=== PATIENT | female | born 1995 | race Asian ===

== ENCOUNTER 2023-08-12 21:58 | Emergency (ER) | payer OTHER ==
--- OUTSIDE RECORDS SUMMARY | 2023-08-12 22:04 | XMS REPORT | Continuity of Care Document ---
:1995 Author Organization [facility] t Address [address] [place] [address] Care Team Providers Name Role Phone Asked, No Pcp Primary Care Physician Unavailable [email or web address]_S Attending Clinician Unavailable Zack Rodas Attending Clinician Unavailable Gali MORRIS, [facility] Attending Clinician Lakshmi Pemberton MD Attending Clinician Junior Vega MD Attending Clinician Noreen Gallo Attending Clinician Unavailable Triston Hackett Attending Clinician ABY GRIJALVA Attending Clinician Unavailable Ainsley Priest Attending Clinician [email or web address]_Kadiyala_S Admitting Clinician Unavailable KNOW, DOES_NOT Admitting Clinician Unavailable JUNIOR VEGA Admitting Clinician Unavailable MD LAKSHMI PEMBERTON Admitting Clinician Unavailable Physician, No Primary or Family Admitting Clinician Unavailruth ann BrandtzeAinsley Nneze Admitting Clinician Payers Payer Name Policy Type Policy Number Effective Date Expiration Date S peter Problems Condition Condition Condition Status Onset Resolution Last Treating Co mments Source Name Details Category Date Date Treatment Clinician Date Non-trauma Non-trauma Disease Active M ethodi tic tic 6-29 st rhabdomyol rhabdomyol 00:00: Ho spita ysis ysis 00 l BPP BPP Diagnosis Active 2019-01-03 Mem oria Active 11-12 14:22:00 l 11/12/2018 00:00: Oniel connors [facility] 00 Edwin CONTRACTIO CONTRACTI Diagnosis Active 2018-10-19 Memoria NS ONS Active 10-18 12:51:00 l 10/18/2018 00:00: Oniel connors [facility] 00 [place] F/U GROWTH F/U Diagnosis Active 2019-03-22 Memoria GROWTH 10-12 10:26:00 l Active 00:00: Edwin 10/12/2018 00 [facility] Edwin GC/ANATOMY GC/ANATOM Diagnosis Active 2017-102018-09-07 Memoria /DIABETES/ Y/DIABETES 0-31 12:02:00 l PRIOR /PRIOR 00:00: Edwin 00 Active 08/04/2018 [facility] Edwin Diabetes Diabetes Problem Active [facility] Di[facility] Active [facility] l ans counseling counseling completed completed Type 2 Type 2 Problem Active [facility] diabetes diabetes Physic i mellitus mellitus ans with with complicati complicati on, on, unspecifie unspecifie d whether d whether penitentiary penitentiary insulin insulin use use Weeks of Weeks of Problem 2019-05-31 Memoria gestation gestation 12:00:41 l of of Edwin not not specified specified 05/31/2019 [facility] Supervisio Supervisi Problem 2019-04-26 Memoria n of on of 11:43:09 l Herm juan j with other with other poor poor reproducti reproducti ve or ve or obstetric obstetric history, history, second second trimester trimester 04/26/2019 Aby Encounter Encounter Problem 2019-04-26 Memoria for for 11:43:09 l Herm juan j screening screening for for growth growth retardatio retardatio n n 04/26/2019 [facility] Other Other Problem 2019 Memor ia specified specified 11:27:05 l Herm juan j related related conditions conditions , second , second trimester trimester 2019 [facility] Dehydratio Problem 2019 M emoria n Dehydratio 11:27:05 l n [place] 2019 [facility] Supervisio Supervisi Problem 2019 Memoria n of on of 11:27:05 l Herm juan j with with history of history of pre-term pre-term labor, labor, second second trimester trimester 2019 [facility] 26 weeks 26 weeks Problem 2019 Memoria gestation gestation 11:27:05 l of of [place] 2019 [facility] Patient Patient Problem Resolve 2019-05-31 2019-05-31 Memoria currently currently d 10-18 12:00:41 12:00:41 l 00:00: Oniel connors (finding) (finding) 00 Resolved 10/18/2018 Problem 05/31/2019 [facility] History of Past Illness Condition Condition Condition Status Onset Resolution Last Treating Co mments Source Name Details Category Date Date Treatment Clinician Date Unspecifie Unspecifi Problem 2019-05-31 2019-05-31 Memoria d diabetes ed 2-12 12:00:41 12:00:41 l mellitus diabetes 04:49: Oniel connors in mellitus 48 , in second , trimester second trimester 11/16/2018 05/31/2019 [facility] False False Problem 2018-2019-05-07 2019 M emoria labor labor 10-23 11:27:05 11:27:05 l before 37 before 37 04:42: Herm juan j completed completed 50 weeks of weeks of gestation, gestation, second second trimester trimester 10/23/2018 9 [facility] Encounter Encounter Problem 2018-2019-04-26 2019-04-26 Memoria for other for other 10-11 11:43:09 11:43:09 l specified specified 03:45: Herm juan j 35 screening screening 10/11/2018 04/26/2019 [facility] Allergies, Adverse Reactions, Alerts Allergy Allergy Status Severity Reaction(s) Onset Inactive Treating Comm ents Source Name Type Date Date Clinician No Known DA Active [facility] 06[facility]18 [facility] 00 [facility] No Known DA Active [facility] Allergie 06-18 [facility] 00:[facility] 00 [facility] No Known No Known Active Memori a Medicati Medicati l on on [place] Allergie Allergie s s Social History Social Habit Start Date Stop Date Quantity Comments Source [facility] of Social 2022-04-07 2022-04-07 [facility] function 00:00:00 00:00:00 Sex Ass[birth year] At [birth year] [facility] 00:00:00 00:00:00 Smoking Status Start Date Stop Date Source Social History [facility] Medications Ordered Filled Start Stop Current Ordering Indication Dosage Frequency Signature Comments Components Source Medication Medication Date Date Medication? Clinician (SIG) Name Name ibuprofen No 600mg [id number] Take 600 [facility] (ADVIL) 600 -29 04-[id number] MG tablet 00:00: 00:00 3D mouth 3 Hosp [facility] 00 :00 (three) l times a day as needed for mild pain. ibuprofen No 600mg Q.[id number] Take 600 [facility] (ADVIL) 600 6- 07-[id number] MG tablet 00:00: 00:00 3D mouth 3 Hosp [facility] 00 :00 (three) l times a day as needed for mild pain. Lactated No 1,000 mL, Naeem sweta Ringers IV -14 Rate: l 1,000 mL 15:00: 1,000 Edwin 00 ml/hr, Infuse over: 1 hr, Route: IV, Dosing Weight 71.364 kg, Total Volume: 1,000, Start date: 10/18/18 9:00:[address] REPORTER, Duration: 1 doses or times, Stop date: 10/18/18 9:59:[address] REPORTER, 1.77, m2 metFORMIN Yes 1000mg Q.5D Take 1,000 [facility] (GLUCOPHAGE 6-[address] ) 500 mg 00:00: mouth 2 Hospit a tablet 00 (two) l times a day. Per Pt. She run out of this medication on 04/01/22. Pt. Needs to see her PCP for a refill or evaluation . metFORMIN 2016-0 Yes 1000mg Q.5D Take 1,000 [facility] (GLUCOPHAGE 6-[address] ) 500 mg 00:00: mouth 2 Hospit a tablet 00 (two) l times a day. Per Pt. She run out of this medication on 04/01/22. Pt. Needs to see her PCP for a refill or evaluation . metFORMIN 2016-0 Yes 1000mg Q.5D Take 1,000 [facility] (GLUCOPHAGE 6-[address] ) 500 mg 00:00: mouth 2 Hospit a tablet 00 (two) l times a day. Per Pt. She run out of this medication on 04/01/22. Pt. Needs to see her PCP for a refill or evaluation . metFORMIN 2016-0 Yes 1000mg Q.5D Take 1,000 [facility] (GLUCOPHAGE 6-[address] ) 500 mg 00:00: mouth 2 Hospit a tablet 00 (two) l times a day. Per Pt. She run out of this medication on 04/01/22. Pt. Needs to see her PCP for a refill or evaluation . metFORMIN 2015-0 Yes 1000mg Q.5D Take 1,000 [facility] (GLUCOPHAGE 6-[address] ) 500 mg 00:00: mouth 2 Hospit a tablet 00 (two) l times a day. Per Pt. She run out of this medication on 04/01/22. Pt. Needs to see her PCP for a refill or evaluation . Vital Signs Vital Name Observation Time Observation Value Comments Source Systolic blood 2022-04-07 13:15:29 115 mm[Hg] [facility] pressure Diastolic blood 2022-04-07 13:15:29 70 mm[Hg] [facility] pressure Heart rate 2022-04-07 13:15:29 78 /min [facility] Body temperature 2022-04-07 13:15:29 36.67 Lizette [facility] Respiratory rate 2022-04-07 13:15:29 20 /min [facility] Oxygen saturation in 2022-04-07 13:15:29 99 /min [facility] Arterial blood by Pulse oximetry Body height 2022-04-02 04:13:00 152.4 cm [facility] Body weight 2022-04-02 04:13:00 69.854 kg [facility] BMI 2022-04-02 04:13:00 30.08 kg/m2 [facility] Weight 2018-11-15 10:39:00 162 [lb_av] [facility] Respitory Rate 2018-10-18 14:29:00 Zachery monsivais [place] Systolic (mm Hg) 2018-10-18 14:29:00 Naeem mcdonough [place] Diastolic (mm Hg) 2018-10-18 14:29:00 Mem orial [place] Heart Rate 2018-10-18 14:29:00 [facility] Temperature Oral (F) 2018-10-18 14:29:00 98.6 F [facility] BMI Calculated 2018-10-18 14:22:00 Zachery al [place] Weight 2018-10-18 14:22:00 [facility] Height 2018-10-18 14:22:00 152.4 cm [facility] Procedures Procedure Date / Time Performing Clinician Source Performed POC GLUCOSE 2022-04-07 14:25:00 Junior Vega [facility] CBC WITH PLATELET AND 2022-04-07 10:05:00 Junior Vega [facility] DIFFERENTIAL COMPREHENSIVE METABOLIC 2022-04-07 10:05:00 Kristen [facility] PANEL CREATINE KINASE, TOTAL 2022-04-07 10:05:[address] [facility] ([facility]) ESTIMATED GFR 2022-04-07 10:05:00 Junior Vega Ho spital POC GLUCOSE 2022-04-07 01:59:00 Junior Vega Ho spital POC GLUCOSE 2022-04-06 23:14:00 Junior Vega Ho spital POC GLUCOSE 2022-04-06 17:57:00 Junior Vega Ho spital POC GLUCOSE 2022-04-06 15:06:00 Junior Vega Ho spital POC GLUCOSE 2022-04-06 14:03:00 Junior Vega Ho spital CBC WITH PLATELET AND 2022-04-06 10:41:00 Junior Vega [facility] DIFFERENTIAL COMPREHENSIVE METABOLIC 2022-04-06 10:41:00 [facility] PANEL CREATINE KINASE, TOTAL 2022-04-06 10:41:[address] [facility] ([facility]) ESTIMATED GFR 2022-04-06 10:41:00 Junior Vega Ho spital POC GLUCOSE 2022-04-06 02:02:00 Junior Vega Ho spital POC GLUCOSE 2022-04-05 21:57:00 Junior Vega Ho spital POC GLUCOSE 2022-04-05 17:10:00 Junior Vega Ho spital POC GLUCOSE 2022-04-05 13:02:00 Junior Vega Ho spital CBC WITH PLATELET AND 2022-04-05 10:07:00 Junior Vega [facility] DIFFERENTIAL COMPREHENSIVE METABOLIC 2022-04-05 10:07:00 Junior Vega [facility] PANEL CREATINE KINASE, TOTAL 2022-04-05 10:07:[address] [facility] ([facility]) ESTIMATED GFR 2022-04-05 10:07:00 Junior Vega Ho spital MANUAL DIFFERENTIAL 2022-04-05 10:07:00 [facility] POC GLUCOSE 2022-04-05 02:02:00 Junior Vega Ho spital POC GLUCOSE 2022-04-04 22:17:00 Junior Vega Ho spital POC GLUCOSE 2022-04-04 19:15:00 Junior Vega Ho spital POC GLUCOSE 2022-04-04 17:50:00 Junior Vega Ho spital POC GLUCOSE 2022-04-04 16:32:00 Junior Vega Ho spital POC GLUCOSE 2022-04-04 13:59:00 Junior Vega Ho spital CBC WITH PLATELET AND 2022-04-04 09:49:00 Junior Vega [facility] DIFFERENTIAL COMPREHENSIVE METABOLIC 2022-04-04 09:49:00 Junior eVga [facility] PANEL CREATINE KINASE, TOTAL 2022-04-04 09:49:[address] [facility] ([facility]) ESTIMATED GFR 2022-04-04 09:49:00 Junior Vega Ho spital MANUAL DIFFERENTIAL 2022-04-04 09:49:00 Junior Vega [facility] POC GLUCOSE 2022-04-04 01:50:00 Junior Vega Ho spital POC GLUCOSE 2022-04-03 22:22:00 Junior Vega Ho spital POC GLUCOSE 2022-04-03 17:38:00 Lakshmi Pemberton Ho spital US HEPATIC 2022-04-03 15:17:42 Junior Vega Ho spital POC GLUCOSE 2022-04-03 13:18:00 Lakshmi Pemberton Ho spital ZZCOVID-19 ANTI-SPIKE IGG 2022-04-03 09:28:00 Olaf [facility] ANTIBODY TITER Cesar CREATINE KINASE, TOTAL 2022-04-03 09:28:00 [facility] ([facility]) ACUTE VIRAL HEPATITIS 2022-04-03 09:28:00 [facility] PANEL (HAV, HBV, HCV) CBC WITH PLATELET AND 2022-04-03 09:28:00 [facility] DIFFERENTIAL COMPREHENSIVE METABOLIC 2022-04-03 09:28:00 [facility] PANEL HEMOGLOBIN A1C 2022-04-03 09:28:00 [facility] ZZCOVID-19 SEROLOGY 2022-04-03 09:28[facility] Cesar ESTIMATED GFR 2022-04-03 09:28:00 [facility] MANUAL DIFFERENTIAL 2022-04-03 09:28:00 [facility] POC GLUCOSE 2022-04-03 01:56:00 Lakshmi Pemberton spital POC GLUCOSE 2022-04-02 22:29:00 Lakshmi Pemberton spital URINE DRUGS OF ABUSE 2022-04-02 20:07:00 [facility] SCREEN CREATINE KINASE, TOTAL 2022-04-02 20:07:00 Candida Thomas [facility] ([facility]) COMPREHENSIVE METABOLIC 2022-04-02 20:07[facility]00 [facility] PANEL CBC WITH PLATELET AND 2022-04-02 20:07:00 Thomas, [facility] DIFFERENTIAL ESTIMATED GFR 2022-04-02 20:07:00 [facility] POC GLUCOSE 2022-04-02 15:26:00 Lakshmi Pemberton spital POC GLUCOSE 2022-04-02 14:36:00 [facility] US DUPLEX VENOUS LOWER 2022-04-02 09:28:00 [facility] EXTREMITY RIGHT URINE CULTURE 2022-04-02 08:25:00 [facility] COVID-19 QUALITATIVE 2022-04-02 08:13:00 [facility] RT-PCR URINALYSIS SCREEN AND 2022-04-02 08:13:00 [facility] MICROSCOPY, WITH REFLEX TO CULTURE HCG QUALITATIVE, URINE 2022-04-02 08:13:00 [facility] SCREEN CBC WITH PLATELET AND 2022-04-02 05:53:00 [facility] DIFFERENTIAL PROTHROMBIN TIME WITH INR 2022-04-02 05:53:00 [facility] PARTIAL THROMBOPLASTIN 2022-04-02 05:53:00 [facility] TIME (PTT) COMPREHENSIVE METABOLIC 2022-04-02 05:53:00 [facility] PANEL CREATINE KINASE, TOTAL 2022-04-02 05:53:00 [facility] (K) SEDIMENTATION RATE 2022-04-02 05:53:00 [facility] C-REACTIVE PROTEIN 2022-04-02 05:53:00 [facility] ESTIMATED GFR 2022-04-02 05:53:00 [facility] SMEAR REVIEW 2022-04-02 05:53:00 [facility] XR KNEE 3 VW RIGHT 2022-04-02 04:36:43 [facility] Plan of Care Planned Activity Planned Date Details Comments Source Future Scheduled 2023-08-02 Screening for [facility] Test 09:25:17 malignant neoplasm of cervix (procedure) [code = 345526019] Future Scheduled 2023-08-02 INFLUENZA VACCINE [facility] Test 09:25:17 (#1) [code = INFLUENZA VACCINE (#1)] Future Scheduled 2023-08-02 COVID-19 [facility]ACCINE [facility] Test 09:25:17 (#1) [code = COVID-19 VACCINE (#1)] Future Scheduled 2023-07-19 COVID-19 [facility]ACCINE [facility] Test 12:54:41 (#1) [code = COVID-19 VACCINE (#1)] Future Scheduled 2023-07-19 Screening for [facility] Test 12:54:41 malignant neoplasm of cervix (procedure) [code = 793500159] Future Scheduled 2023-07-19 IN[facility] VACCINE [facility] Test 12:54:41 (#1) [code = INFLUENZA VACCINE (#1)] Future Scheduled 2023-07-19 RSV VACCINES > 60 [facility] Test 12:54:41 YR (1 - 1-dose 60+ series) [code = RSV VACCINES > 60 YR (1 - 1-dose 60+ series)] Future Scheduled 2023-06-12 COVID-19 VACCINE [facility] Test 11:58:32 (#1) [code = COVID-19 VACCINE (#1)] Future Scheduled 2023-06-12 Screening for [facility] Test 11:58:32 malignant neoplasm of cervix (procedure) [code = 128528138] Future Scheduled 2023-06-12 INFLUENZA VACCINE [facility] Test 11:58:32 (#1) [code = INFLUENZA VACCINE (#1)] Future Scheduled 2022-09-22 COVID-19 VACCINE [facility] Test 19:51:45 (#1) [code = COVID-19 VACCINE (#1)] Future Scheduled 2022-09-22 Screening for [facility] Test 19:51:45 malignant neoplasm of cervix (procedure) [code = 627216774] Future Scheduled 2022-09-22 INFL[facility]ENZA VACCINE [facility] Test 19:51:45 [code = INFLUENZA VACCINE] Future Scheduled 2022-09-22 COVID-[address] [facility] Test 19:51:45 (#1) [code = COVID-19 VACCINE (#1)] Future Scheduled 2022-09-22 Screening [facility] Test 19:51:45 malignant neoplasm of cervix (procedure) [code = 880135467] Future Scheduled 2022-09-22 INFLUENZA VACCINE [facility] Test 19:51:45 [code = INFLUENZA VACCINE] Encounters Start End Encounter Admission Attending Care Care Encounter Source Date/Time Date/Time Type Type Clinicians Facility Department ID 2023-08-04 2023-08-04 Outpatient GC_GCBZW_Ka PRIV PRIV [id number] [facility] 00:00:00 00:00:00 tony_S [id number] [facility] 2023-07-29 2023-07-29 Outpatient [facility] [id number] [facility] 08:28:00 08:28:00 Zack [facility] 2022-04-01 2022-04-07 [facility] [id number] [facility] 23:15:00 11:05:00 Encounter Lakshmi Pemberton [id number] Junior Vega [id number] Hospita .[id number] l .8 2022-03-30 2022-03-31 Emergency EM Aharaissaeze, [facility] [id number] [facility] 17:15:00 00:54:00 Noreen [facility] 2021-02-17 2021-02-17 Inpatient [facility] [id number] [facility] 09:41:31 09:41:31 25 [facility] 2020-12-31 2020-12-31 Outpatient [facility] CO[facility] PBXFGAQ XVD [facility] 00:00:00 00:00:00 - 3 2018-12-14 2019-01-04 [facility] [id number] Memoria 14:03:00 04:59:00 merna Pineda 03 l [facility] 2018-12-14 2019-01-03 Outpatient [place] [id number] 09:03:00 23:59:00 Triston Gracia 2018-11-12 2018-12-13 [facility] [id number] Memoria 14:38:00 04:59:00 r [place] 02 l [facility] 2018-11-12 2018-12-12 Outpatient [place] [id number] 08:38:00 23:59:00 Triston Fagan 2018-11-12 2018-11-12 Appointmen EDUCATION, [facility] Women's [id number] [place] 10:00:00 10:00:00 t; [facility] EDUCATION, [place] 2018-10-12 2018-11-11 Recurring [facility] [id number] Memoria 18:16:00 05:59:00 r [place] 01 l [facility] 2018-10-12 2018-11-10 Outpatient [place], PL PL [id number] 12:16:00 23:59:00 Triston Gracia 2018-10-12 2018-11-10 Outpatient [place] [id number] 12:16:00 23:59:00 Triston Gracia 2018-10-18 2018-10-18 Observatio nullFlavo [facility] 3521 [id number] Memoria 14:21:00 16:15:00 n r [place] 00 l [facility] 2018-10-18 2018-10-18 Outpatient Zayda, PL [facility] [id number] 08:21:00 10:15:00 Comfort 00 Nneze 2018-09-07 2018-10-07 Recurring [facility] [id number] Memoria 15:41:00 05:59:00 r [place] 00 l [facility] 2018-09-07 2018-10-06 Outpatient [place], PL PL [id number] 09:41:00 23:59:00 Triston Gracia 2018-10-06 2018-10-06 [facility] EDUCATION, [facility] UTP [id number] [place] 12:00:00 12:00:00 t; [facility] EDUCATION, [facility] Results Test Description Test Time Test Comments Results Result Comments Source POC glucose 2022-04-07 14:27:00 Test Item Value Reference Range Interpretation Comme nts POC glucose (test code = 18991-8) 187 mg/dL 65-99 H Senior Product Development Scientist Name: Stephon Guzmán ID: [id number] Lab Interpretation (test code = Abnormal 18243-3) [facility] [id number] 14:27:00 Test Item Value Reference Range Interpretation Comments POC glucose (test code = 187 mg/dL 65-99 H Ope rator Name: [id number]) Stephon Guzmán ID: [id number] Lab Interpretation (test Abnormal code = 93263-8) [facility] [id number] 08:46:00 Test Item Value Reference Range Interpretation Comments Urine culture (test SEE COMMENT Bacteriu sweta screen code = 0780513) negative. [facility] [id number] 08:46:00 Test Item Value Reference Range Interpretation Comments Urine culture (test SEE COMMENT Bacteriu sweta screen code = 7284635) negative[facility] [Presence] in Respiratory specimen by STAN with probe [id number] 06:19:33 Test Item Value Reference Range Interpretation Comments SARS-CoV-2 (COVID-19) RNA Not detected [Presence] in Respiratory specimen by STAN with probe detection (test code = 12092-7) Whether patient is employed in a Unknown healthcare setting (test code = 85722-4) Whether the patient has symptoms Unknown related to condition of interest (test code = 63045-3) Whether the patient was Unknown hospitalized for condition of interest (test code = 87240-2) Whether the patient was admitted Unknown to intensive care unit (ICU) for condition of interest (test code = 78530-2) Whether patient resides in a Unknown congregate care setting (test code = 70890-7) status (test code = Unknown 75620-0) Date and time of symptom onset Unknown (test code = 84967-1) [facility] [id number] 00:27:00 Test Item Value Reference Range Interpretation Comments GLUBED (test code = 251 mg/dL 65-110 H Phsician Notified GLUBED) UR HCG [id number] 10:32:00 Test Item Value Reference Range Interpretation Comments UR HCG QUAL (test code = HCGQLU) POSITIVE COMPREHENSIVE METABOLIC [id number] 10:07:00 Test Item Value Reference Range Interpretation Comments SODIUM (test code = NA) 134 mEq/L 135-145 L POTASSIUM (test code = K) 3.8 mEq/L 3.5-5.0 N CHLORIDE (test code = CL) 99 mEq/L 100-115 L CARBON DIOXIDE (test code = CO2) 24 mEq/L 22-31 N ANION GAP (test code = GAP) 15.20 10-20 N GLUCOSE (test code = GLU) 239 mg/dL 65-110 H BLOOD UREA NITROGEN (test code = 11 mg/dL 7-18 N BUN) GLOMERULAR FILTRATION RATE (test 87 ml/min >60 N code = GFR) CREATININE (test code = CREAT) 0.8 mg/dL 0.5-1.0 N TOTAL PROTEIN (test code = PROT) 7.3 gm/dL 6.3-8.2 N ALBUMIN (test code = ALB) 3.9 gm/dL 3.4-4.8 N CALCIUM (test code = CA) 8.7 mg/dL 8.4-10.2 N BILIRUBIN TOTAL (test code = BILT) 1.4 mg/dL 0.2-1.0 H SGOT/AST (test code = AST) 16 units/L 15-37 N SGPT/ALT (test code = ALT) 25 units/L 12-78 N ALKALINE PHOSPHATASE TOTAL (test 52 units/L 46-116 N code = ALKP) CBC W/AUTO [id number] 09:58:00 Test Item Value Reference Range Interpretation Comments WHITE BLOOD CELL (test code = WBC) 13.8 K/mm3 6.5-12.3 H RED BLOOD CELL (test code = RBC) 4.98 M/mm3 3.51-4.69 H HEMOGLOBIN (test code = HGB) 14.9 g/dL 10.1-13.8 H HEMATOCRIT (test code = HCT) 43.5 % 32.5-41.8 H MEAN CELL VOLUME (test code = MCV) 87.3 fL 84.6-96.6 N MEAN CELL HGB (test code = MCH) 29.9 pg 27.3-33.9 N MEAN CELL HGB CONCETRATION (test 34.3 gm/dL 32.0-34.2 H code = MCHC) RED CELL DISTRIBUTION WIDTH (test 12.1 % 12.2-16.3 L code = RDW) PLATELET COUNT (test code = PLT) 296 K/mm3 134-363 N MEAN PLATELET VOLUME (test code = 10.6 fL 9.2-12.7 N MPV) NEUTROPHIL % (test code = NT%) 60.7 % 57.9-77.3 N LYMPHOCYTE % (test code = LY%) 34.3 % 14.5-29.7 H MONOCYTE % (test code = MO%) 3.7 % 3.6-10.2 N EOSINOPHIL % (test code = EO%) 0.7 % 0.0-3.0 N BASOPHIL % (test code = BA%) 0.1 % 0.1-0.9 N NEUTROPHIL # (test code = NT#) 8.4 K/mm3 LYMPHOCYTE # (test code = LY#) 4.7 K/mm3 MONOCYTE # (test code = MO#) 0.5 K/mm3 EOSINOPHIL # (test code = EO#) 0.09 K/mm3 BASOPHIL # (test code = BA#) 0.0 K/mm3 RBC MORPHOLOGY REQUIRED (test code NORMAL NORMAL = RBCM) PLATELET MORPHOLOGY REQUIRED (test NORMAL NORMAL code = PLTMR) US Lower Ext Venous Duplex [id number] 05:46:32Patient: SENAIT MCFARLANE Date/Time01/01/2019 05:26 CDTReason for ExamExtremity EdemaReportUS Lower Ext Venous Duplex BilateralINDICATION: Lower extremity edemaSTUDY: Compressionvenous Ultrasound and Doppler evaluation of both lower extremities.Site: [id number]: None availableFINDINGS:Right side:-1. Patent and compressible visualized portions of the common femoral, femoral and popliteal veins to the level of the trifurcation.2. Unremarkable visualized portions of the deep veins of the calf.Left side:-1. Patent and compressible visualized portions of the common femoral, femoral and popliteal veins to the level of the trifurcation.2. Unremarkable visualized portions of thedeep veins of the calf.IMPRESSION:No evidence of DVT is visualized. Final Dictated by: MD Gideon, SaniaDictated DT/TM: 01/01/2019 5:46 amSigned by: MD Gideon, SaniaSigned (Electronic Signature): 01/01/2019 5:46 amURINE AND [id number] 15:08:00 Test Item Value Reference Range Interpretation Comments UA Mucus (test code = UA Mucus) Few /[facility]F [facility] [id number] 15:08:00 Test Item Value Reference Range Interpretation Comments UA RBC (test code = UA RBC) no gt <=2 [facility] [id number] 15:08:00 Test Item Value Reference Range Interpretation Comments UA Bacteria (test code = None Seen (10/18/18 UA Bacteria) 9:08 AM) [facility] [id number] 15:08:00 Test Item Value Reference Range Interpretation Comments UA Turbidity (test code = Clear (10/18/18 9:08 UA Turbidity) AM) [facility] [id number] 15:08:00 Test Item Value Reference Range Interpretation Comments UA Spec Grav (test code = UA Spec 1.016 1 Grav) [facility] [id number] 15:08:00 Test Item Value Reference Range Interpretation Comments UA Bili (test code = Negative *NA*(10/18/18 UA Bili) 9:08 AM) [facility] [id number] 15:08:00 Test Item Value Reference Range Interpretation Comments UA Ketones (test code = UA Ketones) 20 mg/dL [facility] [id number] 15:08:00 Test Item Value Reference Range Interpretation Comments UA Color (test code = Yellow *NA*(10/18/18 UA Color) 9:08 AM) [facility] [id number] 15:08:00 Test Item Value Reference Range Interpretation Comments UA WBC (test code = UA WBC) 2 <=5 [facility] [id number] 15:08:00 Test Item Value Reference Range Interpretation Comments UA Sq Epi (test code = UA Sq Epi) Few /LPF [facility] [id number] 15:08:00 Test Item Value Reference Range Interpretation Comments UA pH (test code = UA pH) 6.0 1 5.0-8.0 [facility] [id number] 15:08:00 Test Item Value Reference Range Interpretation Comments UA Nitrite (test code Negative (10/18/18 9:08 = UA Nitrite) AM) [facility] [id number] 15:08:00 Test Item Value Reference Range Interpretation Comments UA Leuk Est (test code Trace *ABN*(10/18/18 = UA Leuk Est) 9:08 AM) [facility] [id number] 15:08:00 Test Item Value Reference Range Interpretation Comments UA Protein (test code Negative (10/18/18 9:08 = UA Protein) AM) [facility] AND [id number] 15:08:00 Test Item Value Reference Range Interpretation Comments UA Glucose (test code = UA Glucose) 150 [facility] [id number] 15:08:00 Test Item Value Reference Range Interpretation Comments UA Urobilinogen (test code = UA <=1.0 mg/dL 0.1-1.0 Urobilinogen) [facility] AND [id number] 15:08:00 Test Item Value Reference Range Interpretation Comments UA Blood (test code = Negative (10/18/18 9:08 UA Blood) AM) [facility] [id number] 15:03:00 Test Item Value Reference Range Interpretation Comments Fibronectin (test Negative 1(10/18/18 code = 9:03 AM) Fibronectin) [facility]
[2023-08-12] MEDS ORDERED: NA CHLORIDE 0.9% 1,000 ML ONE (22:53)
[2023-08-12] MEDS ORDERED: FOLIC ACID 5 MG/ML VIAL ONE (22:55)
[2023-08-12 23:03] LABS: Absolute Lymphocytes (CBC) 2.2 K/uL (0.7-4.9); Hematocrit 34.9 % (36.0-45.0); Lymphocytes % 22.7 % (15.3-44.8); MCV 85.7 fL (80-100); MPV 8.2 fL (7.6-11.3); Platelets 244 thou/uL (152-406); RBC Red Blood Cell Count 4.08 M/uL (3.86-4.86)
[2023-08-12 23:30] LABS: Potassium 3.7 mEq/L (3.5-5.1)
[2023-08-13] MEDS ORDERED: MORPHINE 2 MG/ML SYR ONE (00:24)
[2023-08-13] MEDS ORDERED: ONDANSETRON 4 MG/2 ML VIAL ONE (00:24)
[2023-08-13] MEDS ORDERED: dexAMETHasone 10 MG/ML VIAL ONE (00:45)
[2023-08-13] MEDS ORDERED: DIAZEPAM 5 MG TABLET ONE (00:45)
[2023-08-13 00:47] LABS: Specific Gravity 1.028 (1.005-1.030); Urine Bilirubin NEGATIVE (Negative); Urine Blood Negative (Negative); Urine Clarity Clear (Clear); Urine Color Light-Yellow (Yellow); Urine Glucose 4+ (Over) (Negative); Urine Protein NEGATIVE (Negative); Urine Urobilinogen Normal (Normal)
[2023-08-13 00:49] LABS: Specific Gravity 1.028 (1.005-1.030)
--- NOTE | 2023-08-13 01:07 | EDPHYS ---
Physician Documentation [facility] Name: Jennifer Rosas Age: 28 yrs Sex: Female : 1995 Arrival Date: 08/12/2023 Time: 21:58 Bed 5 Private MD: TOD Physician Max Gutierrez HPI: 08/13 00:11 This 28 yrs old Female presents to ER via Ambulatory with complaints of EST 23 cedric WKS GESTATION, LOW EXT NUMBNESS, Low Back Pain. 00:11 The patient presents with pain that is acute, and decreased range of motion, and cedric tenderness. The symptoms are located in the low back, lumbar area, left low back and right low back. The pain does not radiate. The problem was sustained from unknown cause. Onset: The symptoms/episode began/occurred yesterday. Modifying factors: The patient symptoms are alleviated by remaining still, the patient symptoms are aggravated by movement. Associated signs and symptoms: Pertinent positives: numbness. Severity of symptoms: At their worst the symptoms were moderate, in the emergency department the symptoms are unchanged. The patient has not experienced similar symptoms in the past. OCCUPATIONAL THERAPIST HOME BASED: 08/12 22:33 3, Premature 2, Living 2, Verified cm10 Historical: - Allergies: 22:32 No Known Allergies; cm10 - PMHx: 22:32 Diabetes mellitus; cm10 - Immunization history:: Adult Immunizations unknown. - Social history:: Smoking status: Patient denies any tobacco usage or history of. ROS: 08/13 00:15 Constitutional: Negative for fever, chills, and weight loss, Eyes: Negative for injury, cedric pain, redness, and discharge, ENT: Negative for injury, pain, and discharge, Neck: Negative for injury, pain, and swelling, Cardiovascular: Negative for chest pain, palpitations, and edema, Respiratory: Negative for shortness of breath, cough, wheezing, and pleuritic chest pain, Abdomen/GI: Negative for abdominal pain, nausea, vomiting, diarrhea, and constipation, : Negative for injury, bleeding, discharge, and swelling, MS/Extremity: Negative for injury and deformity, Skin: Negative for injury, rash, and discoloration, Neuro: Negative for headache, weakness, numbness, tingling, and seizure, Psych: Negative for depression, anxiety, suicide ideation, homicidal ideation, and hallucinations, Allergy/Immunology: Negative for hives, rash, and allergies, Endocrine: Negative for neck swelling, polydipsia, polyuria, polyphagia, and marked weight changes, Hematologic/Lymphatic: Negative for swollen nodes, abnormal bleeding, and unusual bruising, Back: Positive for injury or acute deformity, decreased range of motion, pain with movement, of the lumbar area, left low back and right low back, 00:23 : Negative for urinary symptoms, urinary frequency, small amounts, vaginal bleeding, cderic vaginal discharge, NO CTX, NO LOSS OF FLUID, GOOD MOVEMENTS, Exam: 00:15 Constitutional: This is a well developed, well nourished patient who is awake, alert, cedric and in no acute distress. Head/Face: Normocephalic, atraumatic. Eyes: Pupils equal round and reactive to light, extra-ocular motions intact. Lids and lashes normal. Conjunctiva and sclera are non-icteric and not injected. Cornea within normal limits. Periorbital areas with no swelling, redness, or edema. ENT: Nares patent. No nasal discharge, no septal abnormalities noted. Tympanic membranes are normal and external auditory canals are clear. Oropharynx with no redness, swelling, or masses, exudates, or evidence of obstruction, uvula midline. Mucous membranes moist. Neck: Trachea midline, no thyromegaly or masses palpated, and no cervical lymphadenopathy. Supple, full range of motion without nuchal rigidity, or vertebral point tenderness. No Meningismus. Chest/axilla: Normal chest wall appearance and motion. Nontender with no deformity. No lesions are appreciated. Cardiovascular: Regular rate and rhythm with a normal S1 and S2. No gallops, murmurs, or rubs. Normal PMI, no JVD. No pulse deficits. Respiratory: Lungs have equal breath sounds bilaterally, clear to auscultation and percussion. No rales, rhonchi or wheezes noted. No increased work of breathing, no retractions or nasal flaring. Abdomen/GI: Soft, non-tender, with normal bowel sounds. No distension or tympany. No guarding or rebound. No evidence of tenderness throughout. Female : Normal external genitalia. Skin: Warm, dry with normal turgor. Normal color with no rashes, no lesions, and no evidence of cellulitis. MS/ Extremity: Pulses equal, no cyanosis. Neurovascular intact. Full, normal range of motion. Neuro: Awake and alert, GCS 15, oriented to person, place, time, and situation. Cranial nerves II-XII grossly intact. Motor strength 5/5 in all extremities. Sensory grossly intact. Cerebellar exam normal. Normal gait. 00:15 Back: ROM is painful, normal spinal alignment noted, CVA tenderness, is absent, muscle spasm, is not present, Vital Signs: 08/12 22:29 BP 129 / 91; Pulse 104; Resp 18; Temp 98.2; Pulse Ox 100% ; Weight 71.21 kg; Height 5 cm10 ft. 0 in. ; Pain 07/14; 08/13 00:05 BP 122 / 77; Pulse 97; Resp 17 S; Pulse Ox 100% on R/A; lg3 01:20 BP 119 / 68; Pulse 95; Resp 18 S; Pulse Ox 98% on R/A; ha1 08/12 22:29 Body Mass Index 30.66 (71.21 kg, 152.4 cm) cm10 08/12 22:29 Pain Scale: Adult cm10 MDM: 08/12 22:28 Patient medically screened. [facility] 08/13 00:20 Differential diagnosis: sciatica, contusion, [place], delivery of , ectopic cedric . Data reviewed: vital signs, nurses notes, lab test result(s), radiologic studies, ultrasound. Consideration of Admission/Observation Escalation of care including admission/observation considered. I considered the following discharge prescriptions or medication management in the emergency department Medications were administered in the Emergency Department. See MAR. Independent interpretation of the following test(s) in the Emergency Department Radiology Department Ultrasound: My interpretation is PELVIC USG. Test considered but Not performed: MRI: NO MRI LUMBAR. Historians other than the Patient: Spouse/Significant Other: WELL INFORMED. Care significantly affected by the following chronic conditions: Diabetes. Counseling: I had a detailed discussion with the patient and/or guardian regarding the historical points, exam findings, and any diagnostic results supporting the discharge/admit diagnosis, lab results, radiology results, the need for outpatient follow up, for definitive care, an OB/Gyne specialist. 08/12 22:29 Order name: Abo/rh Typing; Complete Time: 00:06 [facility] 08/12 22:29 Order name: Basic Metabolic Panel; Complete Time: 00:06 [facility] 08/12 22:29 Order name: CBC with Diff; Complete Time: 00:06 [facility] 08/12 22:29 Order name: Test, Urine; Complete Time: 01:06 [facility] 08/12 22:29 Order name: Quantitative Hcg; Complete Time: 00:06 [facility] 08/12 22:29 Order name: Urinalysis w/ reflexes; Complete Time: 01:06 [facility] 08/12 22:29 Order name: US OB Limited [facility] 08/12 22:29 Order name: IV Saline Lock; Complete Time: 22:42 [facility] 08/12 22:29 Order name: Labs collected and sent; Complete Time: 22:42 [facility] 08/12 22:29 Order name: NPO; Complete Time: 22:46 [facility] 08/12 22:29 Order name: FHT's; Complete Time: 22:56 [facility] Administered Medications: 08/12 22:45 Drug: foLIC Acid IVPB 1 mg IVPB once Route: IVPB; Site: left antecubital; ha1 22:45 Drug: NS 0.9% IV 1000 ml IV at 1 bolus Per protocol; 1000 mL bolus Route: IV; Rate: 1 ha1 bolus; Site: left antecubital; 08/13 00:09 Follow up: IV Status: Completed infusion; IV Intake: 1000ml lg3 02:00 Follow up: Response: No adverse reaction; IV Status: Completed infusion; IV Intake: ha1 1000ml 00:27 Drug: morphine IVP or IV 2 mg IVP once over 4 mins Route: IVP; Infused Over: 4 mins; lg3 Site: left antecubital; 01:00 Follow up: Response: No adverse reaction; Pain is decreased; RASS: Alert and Calm (0) ha1 00:27 Drug: Ondansetron IVP 4 mg IVP once; over 2 minutes Route: IVP; Site: left antecubital; lg3 02:00 Follow up: Response: No adverse reaction ha1 00:46 Drug: Decadron - Dexamethasone IVP 6 mg IVP once Route: IVP; Site: left antecubital; lg3 01:59 Follow up: Response: No adverse reaction ha1 00:46 Drug: Diazepam PO 5 mg PO once Route: PO; lg3 01:59 Follow up: Response: No adverse reaction ha1 Disposition Summary: 08/13/23 01:07 Discharge Ordered Notes: Location: Home [facility] Problem: new cedric Symptoms: have improved cedric Condition: Stable [facility] Diagnosis - Low back pain cedric - Sciatica cedric - 21 weeks gestation of cedric - Type 2 diabetes mellitus with hyperglycemia cedric Followup: cedric - With: Private Physician - When: 2 - 3 days - Reason: Recheck today's complaints, Continuance of care, Re-evaluation by your physician Discharge Instructions: - Discharge Summary Sheet cedric - Acute Back Pain, Adult cedric - Musculoskeletal Pain cedric - Care cedric - Sciatica cedric - Second Trimester of cedric - Diabetes Mellitus and Nutrition, Adult cedric - Sciatica, [id number] cedric - Second Trimester of , [id number] [facility] Forms: - Medication Reconciliation Form [facility] - Thank You Letter [facility] - Antibiotic Education cedric - Prescription Opioid Use cedric - Patient Portal Instructions [facility] - Leadership Thank You Letter cedric - Work release form ha1 Prescriptions: - acetaminophen-codeine 300-30 mg Oral tablet - take 2 tablet ORAL route every 6 hours as needed for pain; 20 tablet; Refills: [facility] 0, Product Selection Permitted - Valium 2 mg Oral Tablet - take 1 tablet ORAL route every 8 hours As needed; 20 tablet; Refills: 0, [facility] Product Selection Permitted - Medrol (Efraín) 4 mg Oral Tablets, Dose Pack - take 1 tablet ORAL route as directed - follow package instructions; 1 packet; [facility] Refills: 0, Product Selection Permitted Signatures: Dispatcher [employer] Max Mcdowell MD MD cha Gibson, Lacie, RN RN lg3 Jessica Leung, RN RN ha1 Amada Cloud, RN RN cm10
--- NOTE | 2023-08-13 01:07 | ER ---
Nurse's Notes [facility] Name: Jennifer Rosas Age: 28 yrs Sex: Female : 1995 Arrival Date: 08/12/2023 Time: 21:58 Bed 5 Private MD: Diagnosis: Low back pain;Sciatica;21 weeks gestation of ;Type 2 diabetes mellitus with hyperglycemia Presentation: 08/12 22:29 Chief complaint: Patient states: she is currently 23 weeks and today started cm10 having low back pain, pelvic pressure and bilateral leg numbness. Pt denies and spotting or vaginal bleeding. Pt states that she is considered to have a high risk due to having 2 premature babies. [facility]. Coronavirus screen: Vaccine status: Patient reports being unvaccinated. Client denies travel out of the [place] in the last 14 days. Ebola Screen: Patient denies travel to an Ebola-affected area in the 21 days before illness onset. No symptoms or risks identified at this time. Initial Sepsis Screen: Does the patient meet any 2 criteria? No. Patient's initial sepsis screen is negative. Does the patient have a suspected source of infection? No. Patient's initial sepsis screen is negative. Risk Assessment: Do you want to hurt yourself or someone else? Patient reports no desire to harm self or others. Onset of symptoms was August 12, 2023. 22:29 Method Of Arrival: Ambulatory cm10 22:29 Acuity: SANDY 3 cm10 Triage Assessment: 22:53 General: Appears in no apparent distress. comfortable, Behavior is calm, cooperative. cm10 Pain: Complains of pain in low back area and pelvis Pain currently is 10 out of 10 on a pain scale. EENT: No deficits noted. No signs and/or symptoms were reported regarding the EENT system. Neuro: No deficits noted. Lauren Agitation-Sedation Scale (RASS): 0 - Alert and Calm Level of Consciousness is awake, alert, obeys commands, Oriented to person, place, time, situation, Numbness in right leg and left leg. Cardiovascular: No deficits noted. Patient's skin is warm and dry. Respiratory: No deficits noted. Airway is patent Respiratory effort is even, unlabored, Respiratory pattern is regular, symmetrical. GI: No deficits noted. No signs and/or symptoms were reported involving the gastrointestinal system. : No deficits noted. No signs and/or symptoms were reported regarding the genitourinary system. Derm: No deficits noted. No signs and/or symptoms reported regarding the dermatologic system. Musculoskeletal: No deficits noted. Reports pain in low back area. ADMISSIONS OFFICER: 22:33 3, Premature 2, Living 2, Verified cm10 Historical: - Allergies: 22:32 No Known Allergies; cm10 - PMHx: 22:32 Diabetes mellitus; cm10 - Immunization history:: Adult Immunizations unknown. - Social history:: Smoking status: Patient denies any tobacco usage or history of. Screenin:43 [facility] ED Fall Risk Assessment (Adult) History of falling in the last 3 months, cm10 including since admission No falls in past 3 months (0 pts) Confusion or Disorientation No (0 pts) Intoxicated or Sedated No (0 pts) Impaired Gait Yes (1 pt) Mobility Assist Device Used No (0 pt) Altered Elimination No (0 pt) Score/Fall Risk Level 0 - 2 = Low Risk Oriented to surroundings, Maintained a safe environment, Hourly rounding (assess needs \T\ fall precautionary measures) done. Abuse screen: Denies threats or abuse. Denies injuries from another. Nutritional screening: No deficits noted. Tuberculosis screening: No symptoms or risk factors identified. Assessment: 08/13 00:03 General: Appears in no apparent distress. comfortable, Behavior is calm, cooperative. lg3 Pain: Complains of pain in left leg and right leg and pelvis and low back area. Neuro: No deficits noted. Lauren Agitation-Sedation Scale (RASS): 0 - Alert and Calm Level of Consciousness is awake, alert, obeys commands, Oriented to person, place, time, situation. Cardiovascular: No deficits noted. Denies chest pain, shortness of breath, Capillary refill < 3 seconds Clubbing of nail beds is absent JVD is absent Patient's skin is warm and dry. Respiratory: No deficits noted. Airway is patent Respiratory effort is even, unlabored, Respiratory pattern is regular, symmetrical. GI: No deficits noted. No signs and/or symptoms were reported involving the gastrointestinal system. : No deficits noted. No signs and/or symptoms were reported regarding the genitourinary system. EENT: No deficits noted. No signs and/or symptoms were reported regarding the EENT system. Derm: No deficits noted. No signs and/or symptoms reported regarding the dermatologic system. Skin is intact, is healthy with good turgor, Skin is dry, Skin is normal, Skin temperature is warm. Musculoskeletal: No deficits noted. Circulation, motion, and sensation intact. Range of motion: intact in all extremities. 01:20 Reassessment: Patient and/or family updated on plan of care and expected duration. Pain ha1 level reassessed. Patient is alert, oriented x 3, equal unlabored respirations, skin warm/dry/pink. Vital Signs: 08/12 22:29 BP 129 / 91; Pulse 104; Resp 18; Temp 98.2; Pulse Ox 100% ; Weight 71.21 kg; Height 5 cm10 ft. 0 in. ; Pain 07/14; 08/13 00:05 BP 122 / 77; Pulse 97; Resp 17 S; Pulse Ox 100% on R/A; lg3 01:20 BP 119 / 68; Pulse 95; Resp 18 S; Pulse Ox 98% on R/A; ha1 08/12 22:29 Body Mass Index 30.66 (71.21 kg, 152.4 cm) cm10 11 22:29 Pain Scale: Adult cm10 Vitals: 08/12 22:55 Heart Tones 152. cm10 ED Course: 22:01 Patient arrived in ED. jj6 22:28 Max Gutierrez MD is Attending Physician. [facility] 22:32 Triage completed. cm10 22:33 Arm band placed on Patient placed in an exam room, on a stretcher, on pulse oximetry. cm10 22:42 Abo/rh Typing Sent. cm10 22:42 Basic Metabolic Panel Sent. cm10 22:42 CBC with Diff Sent. cm10 22:42 Quantitative Hcg Sent. cm10 22:42 Initial lab(s) drawn, by ky, sent to lab. Inserted saline lock: 20 gauge in left cm10 antecubital area, using aseptic technique. Blood collected. 22:57 Patient has correct armband on for positive identification. Bed in low position. Call cm10 light in reach. Side rails up X2. Provided Education on: ER process and procedures. . 23:00 US OB Limited In Process Unspecified. EDMS 08/13 00:02 Report received from HALEY Ybarra. lg3 00:03 Client placed on continuous cardiac and pulse oximetry monitoring. NIBP monitoring lg3 applied. monitor tech on. Door closed. Noise minimized. Warm blanket given. Family accompanied patient. 00:03 Patient maintains SpO2 saturation greater than 95% on room air. lg3 00:09 Nidia Velez, RN is Primary Nurse. lg3 01:58 No provider procedures requiring assistance completed. IV discontinued, intact, ha1 bleeding controlled, No redness/swelling at site. Pressure dressing applied. Administered Medications: 08/12 22:45 Drug: foLIC Acid IVPB 1 mg IVPB once Route: IVPB; Site: left antecubital; ha1 22:45 Drug: NS 0.9% IV 1000 ml IV at 1 bolus Per protocol; 1000 mL bolus Route: IV; Rate: 1 ha1 bolus; Site: left antecubital; 08/13 00:09 Follow up: IV Status: Completed infusion; IV Intake: 1000ml lg3 02:00 Follow up: Response: No adverse reaction; IV Status: Completed infusion; IV Intake: ha1 1000ml 00:27 Drug: morphine IVP or IV 2 mg IVP once over 4 mins Route: IVP; Infused Over: 4 mins; lg3 Site: left antecubital; 01:00 Follow up: Response: No adverse reaction; Pain is decreased; RASS: Alert and Calm (0) ha1 00:27 Drug: Ondansetron IVP 4 mg IVP once; over 2 minutes Route: IVP; Site: left antecubital; lg3 02:00 Follow up: Response: No adverse reaction ha1 00:46 Drug: Decadron - Dexamethasone IVP 6 mg IVP once Route: IVP; Site: left antecubital; lg3 01:59 Follow up: Response: No adverse reaction ha1 00:46 Drug: Diazepam PO 5 mg PO once Route: PO; lg3 01:59 Follow up: Response: No adverse reaction ha1 Medication: 08/12 22:43 VIS not applicable for this client. cm10 Intake: 08/13 00:09 IV: 1000ml; Total: 1000ml. lg3 02:00 IV: 1000ml; Total: 2000ml. ha1 Outcome: 01:07 Discharge ordered by . cedric 01:58 Discharged to home ambulatory, with family, ha1 01:58 Condition: stable 01:58 Discharge instructions given to patient, family, Instructed on discharge instructions, follow up and referral plans. medication usage, Demonstrated understanding of instructions, follow-up care, medications, Prescriptions given X 3, 02:00 Patient left the ED. ha1 Signatures: Dispatcher [employer] EDMax Young MD MD cha Gibson, Lacie, RN RN lg3 Violetta Celeste6 Jessica Leung RN RN ha1 Amada Cloud RN RN cm10
[2023-08-13 02:10] VITALS: TEMP 98.2
[2023-08-13 02:22] VITALS: BP 119/68; O2SAT 98
--- NOTE | 2023-08-13 13:19 | RAD REPORT ---
EXAM DESCRIPTION: US - OB Limited - 08/12/2023 10:58 pm CLINICAL HISTORY: 28 years, Female, ABD PAIN COMPARISON: None. FINDINGS: Very limited grayscale images of the pelvis were performed. There is a single living int rauterine in cephalic presentation with ultrasonographic measurements: FL mean measurement of 3.73 cm corresponding to an ultrasonographic gestational age of 21 weeks and 6 days. There was normal movement. heart motion was detected at of 156 beats per minute. Placenta was posterior with no evidence for previa. Cervical length is is closed and measures 3.73 cm. IMPRESSION: Single living intrauterine at 21 weeks and 6 days and cephalic presentation, t he cervix is closed. Electronically signed by: Dante Morales MD 08/12/2023 11:20 PM BISQUE FINISHER Due to temporary technical issues with the PACS/Fluency reporting system, reports are being signed by the in house radiologist without review as a courtesy to ensure prompt reporting. The interpreting r adiologist is fully responsible for the content of the report.
== END 2023-08-13 02:00 | disposition home or self-care (01) ==
LOC: ER 21:58
DX: O99.891 Other specified diseases and conditions complicating pregnancy (principal); M54.30 Sciatica, unspecified side; O24.912 Unspecified diabetes mellitus in pregnancy, second trimester; Z3A.21 21 weeks gestation of pregnancy
CPT/HCPCS: 96361; 85025; 80048; 36415; 86900; 81025; 86901; 84702; 81003; 76815; 96375; 96374; 99285; J1100; J2270; J2405; J7030

== ENCOUNTER → 2023-09-29 | Emergency (ER) | payer OTHER ==
[2023-09-29 15:01] LABS: Absolute Lymphocytes (CBC) 3.2 K/uL (0.7-4.9); Hematocrit 36.7 % (36.0-45.0); Lymphocytes % 35.2 % (15.3-44.8); MCV 85.1 fL (80-100); MPV 8.6 fL (7.6-11.3); Platelets 239 thou/uL (152-406); RBC Red Blood Cell Count 4.32 M/uL (3.86-4.86)
[2023-09-29 15:26] LABS: Potassium 3.6 mEq/L (3.5-5.1)
--- NOTE | 2023-09-29 15:30 | EDPHYS ---
Physician Documentation [facility] Name: Jennifer Rosas Age: 28 yrs Sex: Female : 1995 Arrival Date: 09/29/2023 Time: 14:18 Bed 1 Private MD: ED Physician Shlomo Mays HPI: 09/29 14:36 This 28 yrs old Female presents to ER via Wheelchair with complaints of 30 wks kb , Abdominal Cramping. 14:36 Patient is a 28-year-old female who presents for abdominal cramping that started 3 days kb ago and has been getting more frequent. States yesterday was every hour today is every 5 minutes or so. Reports watery vaginal discharge for 4 days. Also reports decreased movement today. Patient is 30 weeks with a planned scheduled for 11/25/2023. A1. Patient has had 1 vaginal delivery at 30 weeks and 1 at 36 weeks. Patient's OB is Dr. Rodas with [facility]. Historical: - Allergies: 14:30 No Known Allergies; ll1 - PMHx: 14:30 diabetes mellitus; ll1 - Immunization history:: Adult Immunizations up to date. - Social history:: Smoking status: Patient denies any tobacco usage or history of. ROS: 14:35 Constitutional: Negative for fever, chills, and weight loss, kb 14:35 Abdomen/GI: Positive for abdominal pain, abdominal cramps, 14:35 : Positive for vaginal discharge, 14:35 All other systems are negative, Exam: 14:35 Constitutional: This is a well developed, well nourished patient who is awake, alert, kb and in no acute distress. Head/Face: Normocephalic, atraumatic. ENT: Moist Mucous membranes Cardiovascular: Regular rate Respiratory: Respirations even and unlabored. No increased work of breathing. Talking in full sentences Skin: Warm, dry with normal turgor. Normal color. MS/ Extremity: Pulses equal, no cyanosis. Neurovascular intact. Full, normal range of motion. Neuro: Awake and alert, GCS 15, oriented to person, place, time, and situation. Moves all extremities. Normal gait. 14:35 Abdomen/GI: Inspection: gravid appearance, is noted, 14:35 : Gravid exam: Cervical size: the cervix is not dilated, Effacement: the is no kb cervical effacement, heart tones: 142 beats/min, the nurse was present for the exam, Vital Signs: 14:32 BP 136 / 99; Pulse 102; Resp 18; Temp 97.6; Pulse Ox 97% ; Weight 71.21 kg; Height 5 ll1 ft. 0 in. ; Pain 8/10; 14:37 BP 132 / 82; Pulse 90; Resp 18; Pulse Ox 99% on R/A; Pain 9/10; ld1 16:10 BP 138 / 79; Pulse 89; Resp 18; Pulse Ox 100% on R/A; ld1 14:32 Body Mass Index 30.66 (71.21 kg, 152.4 cm) ll1 14:32 Pain Scale: Adult ll1 14:37 Pain Scale: Adult ld1 MDM: 14:21 Patient medically screened. kb 14:36 Data reviewed: vital signs, nurses notes. kb 14:38 Differential diagnosis: Haworth craig, delivery of . Consideration of Admission/Observation Escalation of care including admission/observation considered. pt will be transferred to [facility]. Counseling: I had a detailed discussion with the patient and/or guardian regarding the historical points, exam findings, and any diagnostic results supporting the discharge/admit diagnosis, the need to transfer to another facility, [facility] does not immediately have the required specialist. 15:29 Management of patient was discussed with the following: Pt was accepted to [facility] without conference by Dr Waters. ED course: US had been cancelled after initial assessment. I went to reevaluate pt and she was in US. OB limited and transvaginal US completed, neither of which were ordered by me. . 09/29 14:22 Order name: Abo/rh Typing; Complete Time: 15:51 kb 09/29 14:22 Order name: Basic Metabolic Panel; Complete Time: 15:31 kb 09/29 14:22 Order name: CBC with Diff; Complete Time: 15:08 kb 09/29 14:22 Order name: Test, Urine 09/29 14:22 Order name: Urinalysis w/ reflexes 09/29 14:29 Order name: OB Limited; Complete Time: 15:35 EDMS 09/29 15:09 Order name: TRANSVAG OB CERVIX ASSESSMENT; Complete Time: 15:35 EDMS 09/29 14:22 Order name: IV Saline Lock; Complete Time: 14:42 kb 09/29 14:22 Order name: Labs collected and sent; Complete Time: 14:42 kb 09/29 14:22 Order name: NPO; Complete Time: 14:36 kb 09/29 14:28 Order name: FHT's; Complete Time: 14:36 kb Administered Medications: No medications were administered Disposition: 17:11 Co-signature as Attending Physician, Shlomo Mays MD I reviewed the patient's care rn provided by the Advanced Practice Provider and agree with the diagnosis and treatment plan. Disposition Summary: 09/29/23 15:29 Transfer Ordered Notes: Transfer Location: [facility] kb Reason: Higher level of care kb Condition: Stable kb Problem: new kb Symptoms: are unchanged kb Accepting Physician: Dr Waters(09/29/23 16:11) ld1 Diagnosis - 30 weeks gestation of kb - Lower abdominal pain, unspecified kb Forms: - Medication Reconciliation Form kb - SBAR form kb Signatures: Dispatcher [employer] EDRI Wilma Momin, PHOTO STUDIO ASSISTANT-C PHOTO STUDIO ASSISTANT-Ckb Shlomo Mays MD MD rn Lewis, Lynsay, RN RN ll1 Amanda North RN RN ld1 Corrections: (The following items were deleted from the chart) 14:29 14:23 OB Complete+US.RAD.BRZ ordered. EDRI EDMS 14:39 14:36 Patient is a 28-year-old female who presents for abdominal cramping that started kb 3 days ago and has been getting more frequent. States yesterday was every hour today is every 5 minutes or so. Reports watery vaginal discharge for 4 days. Also reports decreased movement today. Patient is 30 weeks with a planned scheduled for 11/25/2023. A1. Patient has had 1 vaginal delivery at 30 weeks and 1 at 36 weeks.. kb 14:50 14:35 : Gravid exam: Cervical size: the cervix is not dilated, Effacement: the is no kb cervical effacement, the nurse was present for the exam, kb 16:11 15:29 Dr Waters kb ld1
--- NOTE | 2023-09-29 15:30 | ER ---
Nurse's Notes [facility] Name: Jennifer Rosas Age: 28 yrs Sex: Female : 1995 Arrival Date: 09/29/2023 Time: 14:18 Bed 1 Private MD: Diagnosis: 30 weeks gestation of ;Lower abdominal pain, unspecified Presentation: 09/29 14:32 Chief complaint: Patient states: 30 weeks . Contractions started last week. Got ll1 worse today, 5 minutes apart G4, P2, AB1. Coronavirus screen: Client denies travel out of the [place] in the last 14 days. At this time, the client does not indicate any symptoms associated with coronavirus-19. Ebola Screen: Patient denies travel to an Ebola-affected area in the 21 days before illness onset. Initial Sepsis Screen: Does the patient meet any 2 criteria? HR > 90 bpm. No. Patient's initial sepsis screen is negative. Does the patient have a suspected source of infection? No. Patient's initial sepsis screen is negative. Risk Assessment: Do you want to hurt yourself or someone else? Patient reports no desire to harm self or others. Onset of symptoms was September 23, 2023. 14:32 Method Of Arrival: Wheelchair ll1 14:32 Acuity: SANDY 2 ll1 Historical: - Allergies: 14:30 No Known Allergies; ll1 - PMHx: 14:30 diabetes mellitus; ll1 - Immunization history:: Adult Immunizations up to date. - Social history:: Smoking status: Patient denies any tobacco usage or history of. Screenin:37 [facility] ED Fall Risk Assessment (Adult) History of falling in the last 3 months, ld1 including since admission No falls in past 3 months (0 pts). Abuse screen: Denies threats or abuse. Denies injuries from another. Nutritional screening: No deficits noted. Tuberculosis screening: No symptoms or risk factors identified. Assessment: 14:37 General: Appears in no apparent distress. comfortable, Behavior is calm, cooperative, ld1 appropriate for age. Pain: Complains of pain in abdomen Pain does not radiate. Pain currently is 9 out of 10 on a pain scale. Quality of pain is described as crampy, sharp, Pain began 2-3 days ago. Is intermittent. Neuro: Level of Consciousness is awake, alert, obeys commands, Oriented to person, place, time, situation. Cardiovascular: Capillary refill < 3 seconds Patient's skin is warm and dry. Respiratory: Airway is patent Respiratory effort is even, unlabored. GI: Abdomen is round Bowel sounds present X 4 quads. Abd is soft Abd is non tender Reports cramping. : No signs and/or symptoms were reported regarding the genitourinary system. EENT: No signs and/or symptoms were reported regarding the EENT system. Derm: No signs and/or symptoms reported regarding the dermatologic system. Musculoskeletal: No signs and/or symptoms reported regarding the musculoskeletal system. 14:50 Reassessment: Pt transported to ultrasound. ld1 Vital Signs: 14:32 BP 136 / 99; Pulse 102; Resp 18; Temp 97.6; Pulse Ox 97% ; Weight 71.21 kg; Height 5 ll1 ft. 0 in. ; Pain 8/10; 14:37 BP 132 / 82; Pulse 90; Resp 18; Pulse Ox 99% on R/A; Pain 9/10; ld1 16:10 BP 138 / 79; Pulse 89; Resp 18; Pulse Ox 100% on R/A; ld1 14:32 Body Mass Index 30.66 (71.21 kg, 152.4 cm) ll1 14:32 Pain Scale: Adult ll1 14:37 Pain Scale: Adult ld1 Vitals: 14:36 Heart Tones 142 FHT. ld1 ED Course: 14:20 Patient arrived in ED. mr 14:20 Wilma Momin FNP-C is PHCP. kb 14:20 Shlomo Mays MD is Attending Physician. kb 14:21 Wilma Momin FNP-C is PHCP. kb 14:21 Shlomo Mays MD is Attending Physician. kb 14:30 Arm band placed on. ll1 14:34 Triage completed. ll1 14:36 Amanda North, HALEY is Primary Nurse. ld1 14:37 Patient has correct armband on for positive identification. Placed in gown. Bed in low ld1 position. Call light in reach. Side rails up X2. environmental monitoring technician on. Pulse ox on. NIBP on. Door closed. Noise minimized. Warm blanket given. 14:41 Initiated transfer to [facility]. 5 14:44 Inserted saline lock: 20 gauge in right antecubital area, using aseptic technique. tl4 Blood collected. 15:18 OB Limited In Process Unspecified. EDMS 15:18 TRANSVAG OB CERVIX ASSESSMENT In Process Unspecified. EDMS 15:23 Patient accepted to [facility] to the OB ED by Dr. Ayaka Waters, admin mc5 approval by Chris Knox. 15:34 Contacted [facility] to request transport, 15 min ETA. mc5 16:10 No provider procedures requiring assistance completed. Patient transferred, IV remains ld1 in place. Administered Medications: No medications were administered Medication: 16:11 VIS not applicable for this client. ld1 Outcome: 15:29 ER care complete, transfer ordered by . belinda 16:11 Transferred by ground EMS ld1 16:11 Condition: stable 16:11 Instructed on the need for transfer, 16:11 Patient left the ED. ld1 Signatures: Dispatcher [employer] EDMS Wilma Momin, RESIDENTIAL SUPERVISOR-C RESIDENTIAL SUPERVISOR-Ckb Lashell Brandt, Reg Reg mr Dina Bishop, RN RN 1 Amanda North RN RN ld1 Miriam Espino mc5 LogPalomo figueroa tl4
--- NOTE | 2023-09-29 15:31 | RAD REPORT ---
EXAM DESCRIPTION: US - OB Limited - 09/29/2023 3:17 pm CLINICAL HISTORY: ABD CRAMPING, COMPARISON: OB Limited dated 08/12/2023 FINDINGS: A single cephalic presenting gestation is identified. Heart rate normal. 161 beats/minute. measurements are as follows: FL:5.4 Centimeters 20 week 3 day The estimated gestational age (EGA) is 28 weeks 3 day with an MICHELE of12/19/2023. The placenta is posterior in location. No previa. No placenta previa. The amniotic fluid index is subjectively normal The maternal adnexa show no worrisome findings. IMPRESSION: 1. Single, cephalic gestation with an EGA of 20 weeks 3 day and an MICHELE of the 11/20/2023 . 2. No gross abnormalities are identifiable. 3. Posterior placenta without previa. 4. Amniotic fluid index issubjectively normal.
--- NOTE | 2023-09-29 15:32 | RAD REPORT ---
EXAM DESCRIPTION: US - TRANSVAG OB CERVIX ASSESSMENT - 09/29/2023 3:17 pm CLINICAL HISTORY: CX CHECK COMPARISON: No comparisons FINDINGS: Transvaginal ultrasound to assess the cervix. The cervix is long and closed. No funneling identified. The cervix measures 4.6 cm. IMPRESSION: Long and closed cervix.
[2023-09-29 18:29] VITALS: BP 138/79; TEMP 97.6; O2SAT 100
== END ==
LOC: ER 14:18
DX: O26.893 Other specified pregnancy related conditions, third trimester (principal); Z3A.30 30 weeks gestation of pregnancy
CPT/HCPCS: 36415; 76815; 76817; 80048; 85025; 86900; 86901; 99285